=== PATIENT | female | born 1935 | race Caucasian/White ===

== ENCOUNTER → 2017-10-04 | Outpatient (CLI) | payer MEDICARE, OTHER | END | disposition home or self-care (01) | LOC: CFH 09:31 | PROVIDERS: ATTEND Otolaryngology | DX: J31.2 Chronic pharyngitis (principal); Z85.850 Personal history of malignant neoplasm of thyroid | CPT/HCPCS: 76536 ==

== ENCOUNTER → 2017-11-01 | Outpatient (CLI) | payer OTHER ==
[~2017-11-01] MED LIST: LEVO25TA2 PO
== END ==
LOC: STAR 10:02
PROVIDERS: ATTEND Surgery
DX: Z01.818 Encounter for other preprocedural examination (principal)
CPT/HCPCS: 93005

== ENCOUNTER 2017-11-07 06:19 | Inpatient (IN) | payer OTHER ==
[~2017-11-07] VITALS: Ht 172.7 cm; Wt 87.3 kg
[2017-11-07] MEDS ORDERED: BUPIVACAINE/PF 0.5% ONE (06:33)
[2017-11-07] MEDS ORDERED: EPINEPHRINE 1 MG/ML, 1ML ONE (06:34)
[2017-11-07 06:55] VITALS: BP 165/77
[2017-11-07] MEDS ORDERED: LACTATED RINGERS 1,000 ML IV SCH (06:55)
[2017-11-07] MEDS ORDERED: MIDAZOLAM 1 MG/ML, 2ML ONE (07:55)
[2017-11-07] MEDS ORDERED: FENTANYL PF 100 MCG/2ML ONE ×2 (07:55→10:01)
[2017-11-07] MEDS ORDERED: SUCCINYLCHOLINE 20 MG/ML, 10ML ONE (08:08)
[2017-11-07] MEDS ORDERED: ROCURONIUM 10 MG/ML,10ML ONE (08:08)
[2017-11-07] MEDS ORDERED: DEXAMETHASONE 4 MG/ML, 1ML ONE (08:08)
[2017-11-07] MEDS ORDERED: PROPOFOL 10 MG/ML, 20ML ONE (08:08)
[2017-11-07] MEDS ORDERED: ONDANSETRON 2MG/ML, 2ML ONE (08:08)
[2017-11-07] MEDS ORDERED: ONDANSETRON 2MG/ML, 2ML IVPush PRN (09:00)
[2017-11-07] MEDS ORDERED: ACETAMINOPHEN 325 MG TABLET PO PRN ×2 (09:00→11:30)
[2017-11-07] MEDS ORDERED: OXYcodone 5 MG/5 ML ORAL.SOL UDC PO PRN (09:00)
[2017-11-07] MEDS ORDERED: LABETALOL 5MG/ML, 20ML IV PRN (09:00)
[2017-11-07] MEDS ORDERED: METOCLOPRAMIDE 5 MG/ML, 2ML IV PRN (09:00)
[2017-11-07] MEDS ORDERED: HYDROmorphone 1 MG/ML, 1ML IV PRN (09:00)
[2017-11-07] MEDS ORDERED: hydrALAzine 20 MG/ML, 1ML IV PRN ×2 (09:00→12:00)
[2017-11-07] MEDS ORDERED: FENTANYL PF 100 MCG/2ML IV PRN (09:00)
[2017-11-07] MEDS ORDERED: ACETAMINOPHEN 650 MG/20.3 ML UDC ONE (10:01)
[2017-11-07] MEDS ORDERED: HYDROcodone/APAP 5/325 TABLET PO PRN (11:30)
[2017-11-07] MEDS ORDERED: ACETAMINOPHEN 650 MG SUPP PR PRN (11:30)
[2017-11-07] MEDS: POTASSIUM CHLORIDE 20 MEQ in D5%-0.45% NACL 1,000 ML IV SCH (12:43)
[2017-11-07 12:44] VITALS: BP 167/79
[2017-11-07 12:51] VITALS: BP 134/83
[2017-11-07] MEDS: SODIUM CHLORIDE FLUSH 10ML SYR IVF SCH (20:03)
[2017-11-07 20:28] VITALS: BP 138/64
[2017-11-08 00:31] VITALS: BP 130/68
[2017-11-08 03:27] VITALS: BP 153/78
[2017-11-08] MEDS: POTASSIUM CHLORIDE 20 MEQ in D5%-0.45% NACL 1,000 ML IV SCH (04:20)
[2017-11-08] MEDS ORDERED: LEVOTHYROXINE 25 MCG TABLET PO SCH (06:00)
[2017-11-08 06:10] LABS: CALCIUM 8.4 mg/dL (8.5-10.1)
[2017-11-08 07:07] VITALS: BP 134/74
[2017-11-08] MEDS: SODIUM CHLORIDE FLUSH 10ML SYR IVF SCH (07:53)
[2017-11-08] MEDS ORDERED: LEVO25TA2 PO (08:57)
[2017-11-08 09:12] VITALS: BP 128/72
[2017-11-08] MEDS ORDERED: FLU VACC QS2017-18 (36MOS+) UP/PF 0.5 ML IM-VACC ONE (09:30)
[2017-11-08] MEDS ORDERED: PNEUMOCOCCAL 23 VACCINE IM-VACC ONE (09:30)
[2017-11-08] MEDS ORDERED: HYDR-3240 PO (10:04)
== END 2017-11-08 09:47 | disposition home or self-care (01) | DRG 825 ==
LOC: OUT 06:19 → 4NOR 09:22 → OUT 11-08 09:47
PROVIDERS: ADMIT Surgery; ATTEND Surgery
PROC: 07B10ZX Excision of Right Neck Lymphatic, Open Approach, Diagnostic (ICD-10-PCS; principal; 2017-11-07 08:00)
DX: C77.0 Secondary and unspecified malignant neoplasm of lymph nodes of head, face and neck (principal); C73 Malignant neoplasm of thyroid gland; F17.210 Nicotine dependence, cigarettes, uncomplicated; Z82.49 Family history of ischemic heart disease and other diseases of the circulatory system; Z82.3 Family history of stroke; Z23 Encounter for immunization
CPT/HCPCS: 36415; 82310; 83970; 88305; 90686; 90732; J0171; J1100; J2250; J2405; J2704; J3010; J3480; J3490; C1760; J0330; J0360; J7120